=== PATIENT | male | born 1955 | race Caucasian/White ===

== ENCOUNTER 2019-05-27 16:17 | Inpatient (IN) | payer MEDICARE ==
[~2019-05-27] VITALS: Ht 182.9 cm; Wt 76.4 kg
--- OUTSIDE RECORDS SUMMARY | 2019-05-27 16:20 | XMS REPORT | Clinical Summary ---
Author Author [facility] Address Unknown Phone Unavailable Care Team Providers Care Battery Mechanic Name Role Phone PCP Unavailable Allergies Not on File Medications Not on file Active Problems Not on file Social History Date Tobacco Use Types Packs/Day Years Used Never Assessed Sex Assigned at Date Recorded Not on file Industry Job Start Date Occupation Not on file Not on file Not on file Travel End Travel History Travel Start No recent travel history available. Last Filed Vital Signs Not on file Plan of Treatment Health Maintenance Due Date Last Done Comments COLONOSCOPY SCREENING 2007 SHINGLES VACCINES (#1) 2007 INFLUENZA VACCINE 06/09/2019 Results Not on fileafter 05/26/2018 Insurance Type Payer Benefit Subscriber ID Effective Phone Address Plan / Dates Group Medicare MEDICARE MEDICARE xxxxxxxxxx 2012-P [place], PART A AND resent [place] Advance Directives Patient has advance care planning documents on file. For more information, ana m allison contact: Francisco Bello [address] [place] [id number]
[2019-05-27 18:32] LABS: EOSINOPHILS # (AUTO) 0.4 (0.0-0.4); EOSINOPHILS % 5.5 % (0.0-6.0); LYMPHOCYTES # (AUTO) 1.5 (1.0-3.2); LYMPHOCYTES % 19.2 % (18.0-39.1); MEAN CORPUSCULAR HEMOGLOBIN 20.3 pg (28-32); MEAN CORPUSCULAR HGB CONC 27.7 g/dL (31-35); MEAN CORPUSCULAR VOLUME 73.3 fL (81-99); MONOCYTES # (AUTO) 0.9 (0.2-0.8); MONOCYTES % 11.8 % (4.4-11.3); NEUTROPHILS % 62.9 % (38.7-80.0); PLATELET COUNT 464 x10e3/uL (140-360); RED BLOOD COUNT 1.87 x10e6/uL (4.3-5.7); RED CELL DISTRIBUTION WIDTH 19.5 % (11.7-14.4)
[2019-05-27 18:36] LABS: INR 1.45; PARTIAL THROMBOPLASTIN TIME 27.4 seconds (23.8-35.5); PROTHROMBIN TIME 18.2 seconds (11.9-14.5)
[2019-05-27 18:37] LABS: HEMATOCRIT 13.7 % (38.2-49.6); HEMOGLOBIN 3.8 g/dL (14.0-18.0)
[2019-05-27] MEDS ORDERED: SODIUM CHLORIDE 0.9% 250ML 250 ML IV ONE (18:45)
[2019-05-27 18:46] LABS: ALBUMIN 2.4 g/dL (3.5-5.0); ALBUMIN/GLOBULIN RATIO 0.7 (0.8-2.0); ANION GAP 14.6 mmol/L (8-16); CALCIUM 8.7 mg/dL (8.4-10.2); CREATININE, SERUM 2.31 mg/dL (0.72-1.25); POTASSIUM 5.6 mmol/L (3.5-5.1)
[2019-05-27 18:52] LABS: CREATINE KINASE MB 1.2 ng/mL (0-5.0)
--- NOTE | 2019-05-27 19:25 | NUR ---
WITNESSED INFORMED CONSENT FOR TRANSFUSION OF BLOOD
--- NOTE | 2019-05-27 19:48 | Diagnostic Imaging Report ---
EXAMINATION: CHEST SINGLE (PORTABLE) INDICATION: Weakness ^ERMD ORDER ^[id number] ^1920 ^Y COMPARISON: August 01, 2009 FINDINGS: TUBES and LINES: Left chest cardiac device. Sternal wires. LUNGS: Linear opacity over the left chest could be overlying the patient or artifactual. Perihilar peribronchial hazy opacity could be due to bronchitis. PLEURA: Likely small left pleural effusion. HEART AND MEDIASTINUM: Prominent heart size. BONES AND SOFT TISSUES: No acute osseous lesion. Soft tissues are unremarkable. UPPER ABDOMEN: No free air under the diaphragm. IMPRESSION: Linear opacity over the left chest could be overlying the patient or artifactual. Perihilar peribronchial hazy opacity could be due to bronchitis. Likely small left pleural effusion. Follow-up imaging is indicated to document clearing. Signed by: Dr. Johnny Rodriguez M.D. on 05/27/2019 7:45 PM
[2019-05-27 19:51] LABS: FERRITIN 8.83 ng/mL (21.81-274.66)
[2019-05-27] MEDS ORDERED: DIATRIZOATE MEGL/DIATRIZOA SOD 30 ML BTL PO ONE (21:01)
[2019-05-27 21:02] LABS: HYPOCHROMASIA MODERATE; PLATELET ESTIMATE ADEQUATE; PLATELET MORPHOLOGY COMMENT FEW LARGE
[2019-05-27 21:03] LABS: ANISOCYTOSIS SLIG; HOWELL-JOLLY BODIES FEW; POIKILOCYTOSIS SLIGHT; RBC MORPHOLOGY COMMENT ABNORMAL
[2019-05-27] MEDS ORDERED: ONDANSETRON HCL INJ 2MG/ML 2ML 2 MG/ML VIAL IV PRN (21:15)
[2019-05-27] MEDS ORDERED: SODIUM CHLORIDE FLUSH 10 ML SYR INJ PRN (21:15)
--- NOTE | 2019-05-27 21:52 | Diagnostic Imaging Report ---
EXAM: CT of the abdomen and pelvis WITHOUT contrast HISTORY: Weakness, rule out malignancy, oral contrast only COMPARISON: None available. TECHNIQUE: The abdomen and pelvis were scanned utilizing a multidetector helical scanner. Coronal and sagittal reformats are available. PROTOCOL: Routine IV CONTRAST: None, which limits sensitivity and specificity of evaluation of the soft tissues and vascular structures. ORAL CONTRAST: Dilute Gastrografin RADIATION DOSE: Total DLP: 577.66 mGy*cm Estimated effective dose: (DLP x 0.015 x size factor) Dose modulation, iterative reconstruction, and/or weight based adjustment of the mA/kV was utilized to reduce the radiation dose to as low as reasonably achievable. COMPLICATIONS: None FINDINGS: Beam lockett artifact secondary to the overlying upper extremities, limits evaluation. LOWER THORAX: Mild elevation of the left hemidiaphragm. Prominent left pericardial fat pad. Moderate hiatal hernia, contains the proximal stomach. Coarse calcifications at/adjacent to the cardiac apex and adjacent left ventricle. HEPATOBILIARY: No definite focal hepatic lesions. No biliary ductal dilatation. Subtle radiopaque densities at the dependent portion of the gallbladder, likely small calcified stones. SPLEEN: A small amount of presumed splenic tissue in the left upper quadrantt, 3.6 cm in diameter. PANCREAS: No focal masses or ductal dilatation. ADRENALS: No adrenal nodule. KIDNEYS/URETERS: The kidneys are bilaterally atrophic. No hydronephrosis or calcified stone. PELVIC ORGANS/BLADDER: The visualized pelvic organs appear unremarkable. PERITONEUM / RETROPERITONEUM: No free air or fluid. GI TRACT: No bowel dilation. The stomach is decompressed, which limits evaluation. Prominent sigmoid predominant diverticulosis, without evidence of acute diverticulitis. The appendix is not visualized, but there are no inflammatory changes adjacent to the cecum. LYMPH NODES: No pathologically enlarged lymph nodes. VESSELS: Scattered atherosclerotic vascular calcifications, including the coronary arteries. Low-density blood pool. BONES and JOINTS: Diffusely decreased mineralization of the osseous structures limits bone detail. Incompletely healed right posterior seventh, eighth, and ninth rib fractures. Incompletely healed posterior left seventh rib fracture. Severe left hip arthropathy. Moderate anterior wedge compression deformity of T9, approximately 70% loss of the anterior vertebral body height and 40% of the posterior vertebral body height. SOFT TISSUES: Flame-shaped retroareolar densities, compatible with gynecomastia. Diffuse muscle atrophy. Post surgical changes at the right growing and a moderate fat-containing right inguinal hernia. IMPRESSION: 1. No specific evidence of a malignancy on this nonenhanced CT of the abdomen and pelvis. 2. Coronary atherosclerosis. 3. Osseous demineralization, age-indeterminate anterior wedge compression fracture deformity of T9, and multiple incompletely healed rib fractures. 4. Mild cholelithiasis. 5. Moderate hiatal hernia. 6. Colonic diverticulosis. 7. Gynecomastia. Signed by: Dr. Honorio Weaver D.O., M.M.M. on 05/27/2019 9:49 PM
--- OUTSIDE RECORDS SUMMARY | 2019-05-27 22:31 | XMS REPORT | Clinical Summary ---
Author Author [facility] Organization [facility] Address Unknown Phone Unavailable Care Team Providers Care Territory Sales Executive Name Role Phone PCP Unavailable Allergies Not [...] information, ana m allison contact: Francisco Bello [address] [place] [id number]
--- OUTSIDE RECORDS SUMMARY | 2019-05-27 22:31 | XMS REPORT ---
Author Author [facility] Address Unknown Phone Unavailable Care Team Providers Care Bookkeeper Assistant Name Role Phone Ayaan CHEUNG Unavailable Unavailable Problems This patient has no known problems. Allergies, Adverse Reactions, Alerts This patient has no known allergies or adverse reactions. Medications This patient has no known medications. Results Test Description Test Time Test Comments Text Results Atomic Results Result Comments CT ABDOMEN/PELVIS WO 2019-05-27 21:32:00 [place] [address] Patient Name: MARIA DEL ROSARIO ARTEAGA MR #: [id number] : 1955 Age/Sex: 64/M Req #: [id number] Adm Physician: Ordered by: MICHEL KHAN ROOTER OPERATOR Report #: [id number] Location: ER Room/Bed: Procedure: [id number] CT/CT ABDOMEN/PELVIS WO Exam Date: 05/27/19 Exam Time: 2100 REPORT STATUS: Signed EXAM: CT of the abdomen and pelvis WITHOUT contrast HISTORY: Weakness, rule out malignancy, oral contrast only COMPARISON: None available. TECHNIQUE: The abdomen and pelvis were scanned utilizing a multidetector helical scanner. Coronal and sagittal reformats are available. PROTOCOL: Routine IV CONTRAST: None, which limits sensitivity and specificity of evaluation of the soft tissues and vascular structures. ORAL CONTRAST: Dilute Gastrografin RADIATION DOSE: Total DLP: 577.66 mGy*cm Estimated effective dose: (DLP x 0.015 x size factor) Dose modulation, iterative reconstruction, and/or weight based adjustment of the mA/kV was utilized to reduce the radiation dose to as low as reasonably achievable. COMPLICATIONS: None FINDINGS: Beam lockett artifact secondary to the overlying upper extremities, limits evaluation. LOWER THORAX: Mild elevation of the left hemidiaphragm. Prominent left pericardial fat pad. Moderate hiatal hernia, contains the proximal stomach. Coarse calcifications at/adjacent to the cardiac apex and adjacent left ventricle. HEPATOBILIARY: No definite focal hepatic lesions. No biliary ductal dilatation. Subtle radiopaque densities at the dependent portion of the gallbladder, likely small calcified stones. SPLEEN: A small amount of presumed splenic tissue in the left upper quadrantt, 3.6 cm in diameter. PANCREAS: No focal masses or ductal dilatation. ADRENALS: No adrenal nodule. KIDNEYS/URETERS: The kidneys are bilaterally atrophic. No hydronep hrosis or calcified stone. PELVIC ORGANS/BLADDER: The visualized pelvic organs appear unremarkable. PERITONEUM / RETROPERITONEUM: No free air or fluid. GI TRACT: No bowel dilation. The stomach is decompressed, which limits evaluation. Prominent sigmoid predominant diverticulosis, without evidence of acute diverticulitis. The appendix is not visualized, but there are no inflammatory changes adjacent to the cecum. LYMPH NODES: No pathologically enlarged lymph nodes. VESSELS: Scattered atherosclerotic vascular calcifications, including the coronary arteries. Low-density blood pool. BONES and JOINTS: Diffusely decreased mineralization of the osseous structures limits bone detail. Incompletely healed right posterior seventh, eighth, and ninth rib fractures. Incompletely healed posterior left seventh rib fracture. Severe left hip arthropathy. Moderate anterior wedge compression deformity of T9, approximately 70% loss of the anterior vertebral body height and 40% of the posterior vertebral body height. SOFT TISSUES: Flame-shaped retroareolar densities, compatible with gynecomastia. Diffuse muscle atrophy. Post surgical changes at the right growing and a moderate fat-containing right inguinal hernia. IMPRESSION: 1. No specific evidence of a malignancy on this nonenhanced CT of the abdomen and pelvis. 2. Coronary atherosclerosis. 3. Osseous demineralization, age-indeterminate anterior wedge compression fracture deformity of T9, and multiple incompletely healed rib fractures. 4. Mild cholelithiasis. 5. Moderate hiatal hernia. 6. Colonic diverticulosis. 7. Gynecomastia. Signed by: Dr. Daniel Weaver D.O., M.M.M. on 05/27/2019 9:49 PM Dictated By: DANIEL WEAVER DO 48 Transcribed By: OLAMIDE on 05/27/192148 COPY TO: MICHEL KHAN NP CHEST SINGLE (PORTABLE) 2019-05-27 19:43:00 [place] [address] Patient Name: MARIA DEL ROSARIO ARTEAGA MR #: [id number] : 1955 Age/Sex: 64/M Req #: [id number] Adm Physician: Ordered by: MICHEL KHAN ROOTER OPERATOR Report #: [id number] Location: ER Room/Bed: Procedure: [id number] DX/CHEST SINGLE (PORTABLE) Exam Date: 05/27/19 Exam Time: 1919 REPORT STATUS: Signed EXAMINATION: CHEST SINGLE (PORTABLE) INDICA TION: Weakness ERMD ORDER [id number] 1919 Y COMPARISON: August 01, 2009 FINDINGS: TUBES and LINES: Left chest cardiac device. Sternal wires. LUNGS: Linear opacity over the left chest could be overlying the patient or artifactual. Perihilar peribronchial hazy opacity could be due to bronchitis. PLEURA: Likely small left pleural effusion. HEART AND MEDIASTINUM: Prominent heart size. BONES AND SOFT TISSUES: No acute osseous lesion. Soft tissues are unremarkable. UPPER ABDOMEN: No free air under the diaphragm. IMPRESSION: Linear opacity over the left chest could be overlying the patient or artifactual. Perihilar peribronchial hazy opacity could be due to bronchitis. Likely small left pleural effusion. Follow-up imaging is indicated to document clearing. Signed by: Dr. Johnny Rodriguez M.D. on 05/27/2019 7:45 PM Dictated By: JOHNNY RODRIGUEZ MD, MD 44 Transcribed By: OLAMIDE on 05/27/191944 COPY TO: MICHEL KHAN NP
[2019-05-27] MEDS ORDERED: SODIUM CHLORIDE 0.9% 250ML 250 ML ONE (22:49)
--- NOTE | 2019-05-27 23:00 | NUR ---
BEDSIDE VERFICATION COMPLETED FOR BLOOD TRANSFUSION, UNIT 1 OF 4, STARTED FIRST UNIT OF PRBC'S; SEE FLOWSHEET ON CHART.
--- NOTE | 2019-05-27 23:50 | NUR ---
REPORT GIVEN TO ALISHA KRAFT.
[2019-05-28] VITALS (12 sets, daily range): BP systolic 81–108; BP diastolic 49–80
--- NOTE | 2019-05-28 02:00 | NUR ---
received patient alert but showing signs of confusion, vitals stable, on the 2nd unit of blood. for 2 more units
[2019-05-28] MEDS: HYDROCODONE/APAP 5MG-325MG TAB PO PRN ×4 (03:06→21:15)
[2019-05-28 03:25] LABS: BILIRUBIN,URINE NEGATIVE (NEGATIVE); CLARITY,URINE CLEAR (CLEAR); COLOR,URINE YELLOW (YELLOW); KETONES,URINE NEGATIVE (NEGATIVE); LEUKOCYTE ESTERASE ,URINE NEGATIVE (NEGATIVE); NITRITE,URINE NEGATIVE (NEGATIVE); PROTEIN,URINE DIPSTICK NEGATIVE (NEGATIVE); URINE UROBILINOGEN 0.2 mg/dL (0.2 - 1)
[2019-05-28 03:40] LABS: EPITHELIAL CELLS,URINE FEW /LPF; RBC,URINE 0-5 /HPF (0-5); WBC,URINE (MAN) 0-5 /HPF (0-5)
--- NOTE | 2019-05-28 06:37 | NUR ---
patient remains stable and calm, on the last unit of blood, vitals stable
--- NOTE | 2019-05-28 07:32 | NUR ---
Spoke with Dr Christina, verified he is aware of the H&H and agrees with plan of care as patient is receiving 4th PRBC presently and remains free of distress.
[2019-05-28] MEDS: PANTOPRAZOLE 40 MG 10ML VIAL IV SCH (08:40)
[2019-05-28] MEDS ORDERED: ALBUTEROL/IPRATROPIUM 3 ML NEB NEB PRN (10:00)
--- NOTE | 2019-05-28 10:16 | NUR ---
Dr No made aware of consult from Dr Christina.
[2019-05-28] MEDS ORDERED: FUROSEMIDE INJ 10 MG/ML 4 ML VIAL IV ONE (10:30)
--- NOTE | 2019-05-28 10:40 | History and Physical ---
PRIMARY CARE PHYSICIAN: None. CONSULTANTS: 1. Dr. Wesley Castro. 2. Dr. Juancarlos No. CHIEF COMPLAINT: Severe anemia, shortness of breath, very poor personal care with bedbugs found by neighbor. HISTORY OF PRESENT ILLNESS: This is a 64-year-old male with coronary artery disease, cardiomyopathy, ICD to left chest, midsternal scar. The patient lives at home by himself. Apparently, he was found by his neighbor. EMS brought the patient in and apparently on the report, the patient was very unkept at home and the house was very dirty and the patient was surrounded by bedbugs where he fell off his recliner. The patient is a very poor historian. On history, the patient was with poor personal hygiene. On admission to the hospital, the patient found to have hemoglobin and hematocrit of 3.8 and 13.7. His platelets were 464 and his WBC was 7.9. The patient is admitted. He received 4 units of blood transfusion. We will get IV Lasix for the fluid overload. The patient's potassium level was 5.6. His BUN and creatinine on admission were 51 and 2.3. The patient is admitted for further evaluation and treatment. 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 Very poor personal hygiene. HOME MEDICATIONS: Not available. PHYSICAL EXAMINATION: VITAL SIGNS: Temperature is 97, blood pressure 106/63, pulse rate 68, respirations 22. GENERAL: The patient is little confused. HEENT: Normocephalic, atraumatic. Pupils reactive. Mucosa is pale. NECK: Supple. PULMONARY: Diminished breath sounds bilaterally. CARDIOVASCULAR: ICD to left chest. Tachycardia. Midsternal scar. ABDOMEN: Cachexia. EXTREMITIES: 2+ edema with very poor personal hygiene overall. NEUROLOGIC: Awake and alert, moving all extremities. No focal deficit, but confused. LABORATORY DATA: Sodium is 143, potassium 5.6, chloride 107, bicarb 27, BUN 51, creatinine 2.3, glucose is 76. Troponin I negative. Iron 11, total iron binding capacity 465, iron saturation is 2, ferritin is 8.8. WBC of 7.6, hemoglobin 3.8, hematocrit 13.7, platelets 464. Coagulation 1.45 INR, PTT is 27.4. Urinalysis is negative. IMAGING DATA: Abdominal and pelvic CT scan has shown coronary atherosclerosis. Mild cholelithiasis. Moderate hiatal hernia, chronic diverticulosis and gynecomastia. Chest x-ray is with vascular congestion or effusion. IMPRESSION: 1. Severe anemia associated with multiple problems including iron deficiency, possible malignancy, poor nutrition intake. 2. Acute on chronic systolic dysfunction congestive heart failure. 3. Blood transfusion. 4. Very poor personal hygiene and will need placement. 5. Chronic kidney disease, stage unknown. PLAN: IV furosemide post blood transfusion, which is 4 units ordered. Echocardiogram. 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 The patient may need his ICD interrogated. Poor personal hygiene body care. Continue to monitor the patient closely. Workup for anemia. CT scan of the chest. MD HOLDEN Hammond/JOSÉ MIGUEL /[id number]
[2019-05-28 11:05] LABS: BASOPHILS % 0.4 % (0.0-1.0); EOSINOPHILS # (AUTO) 0.6 (0.0-0.4); EOSINOPHILS % 9.2 % (0.0-6.0); HEMATOCRIT 25.5 % (38.2-49.6); HEMOGLOBIN 7.8 g/dL (14.0-18.0); LYMPHOCYTES # (AUTO) 1.3 (1.0-3.2); MEAN CORPUSCULAR HEMOGLOBIN 24.1 pg (28-32); MEAN CORPUSCULAR HGB CONC 30.6 g/dL (31-35); MEAN CORPUSCULAR VOLUME 78.9 fL (81-99); MONOCYTES % 14.8 % (4.4-11.3); NEUTROPHILS # (AUTO) 3.9 (2.1-6.9); NEUTROPHILS % 56.2 % (38.7-80.0); PLATELET COUNT 390 x10e3/uL (140-360); RED BLOOD COUNT 3.23 x10e6/uL (4.3-5.7); RED CELL DISTRIBUTION WIDTH 18.6 % (11.7-14.4)
[2019-05-28 11:26] LABS: ALBUMIN 2.5 g/dL (3.5-5.0); ALBUMIN/GLOBULIN RATIO 0.7 (0.8-2.0); ANION GAP 13.6 mmol/L (8-16); CALCIUM 8.8 mg/dL (8.4-10.2); CREATININE, SERUM 2.22 mg/dL (0.72-1.25); POTASSIUM 5.6 mmol/L (3.5-5.1)
[2019-05-28 11:58] LABS: FOLATE 14.7 ng/mL (7.0-15.4)
[2019-05-28] MEDS: PIPERACILLIN/TAZO 2.25 GM 50 ML IV SCH ×3 (12:24→23:59)
--- NOTE | 2019-05-28 13:31 | Consultation ---
DATE OF CONSULTATION: 05/28/2019 Cardiology Consultation Thank you so much for asking me to see this nice man in consultation. HISTORY OF PRESENT ILLNESS: Mr. Alexis is a complex 64-year-old man, who was brought to the emergency room by neighbors. History of Present Illness obtained from the chart. Evidently, neighbors felt he was doing poorly and insisted he come to the emergency room. No particular complaint is expressed. Reportedly, he fell off his recliner. PAST MEDICAL HISTORY: Complex. He was hospitalized in 2008 at [facility] with demonstration of coronary artery disease, but other history apparently happening at [facility], where he reports that he had coronary bypass graft surgery and defibrillator placement. Current medications and further history not available. PHYSICAL EXAMINATION: GENERAL: The patient is awake and answers in very short phrases, falls back asleep. VITAL SIGNS: Blood pressure 106/63 and pulse 70 and regular. HEAD, EYES, EARS, NOSE, AND THROAT: Unremarkable. THORAX: Healed midline sternotomy and left subclavian pacemaker site intact. HEART: Sounds S1, S2 are equal. No distinct murmurs. LUNGS: Relatively clear. ABDOMEN: Normal bowel sounds. Nontender. EXTREMITIES: Dirty, and apparently has bedbugs as well. LABORATORY STUDIES: On admission, showed BUN 51, creatinine 2.3, and potassium 5.6. Liver functions appeared to be normal. His prothrombin time 18.2 seconds, INR 1.45. Initial hemoglobin 3.8, hematocrit 13.7, and white count 7.9. EKG shows sinus rhythm. Chest x-ray relatively poor quality. CT of the abdomen reported as no specific evidence of malignancy, coronary artery disease is seen, mild cholelithiasis, moderate hiatal hernia, colonic diverticulosis and gynecomastia. Wedge compression of T9 and left hip arthropathy. ASSESSMENT: 1. Profound anemia with hemoglobin of 3.8, now status post transfusion. 2. Coronary artery disease with previous coronary artery bypass graft surgery. He does not describe any chest pain. 3. Defibrillator by his report, he says it was placed at [facility]. 4. Renal insufficiency. 5. Prothrombin time 18.2 seconds, INR 1.4, may represent anticoagulation. PLAN: The patient has been transfused and we will monitor his hemoglobin and hematocrit. We will monitor his cardiovascular status. His prognosis is guarded. We will review echocardiogram when available. May consider interrogating defibrillator if we can find out what brand it is. We will follow him closely with you. Thank you for asking me to see him in consultation. MD RANDAL Durbin/JOSÉ MIGUEL /[id number]
--- NOTE | 2019-05-28 14:42 | Diagnostic Imaging Report ---
EXAM: CT Chest WITHOUT contrast INDICATION: ^SOB COMPARISON: CT abdomen and pelvis 05/27/2018. Chest x-ray 05/27/2019. 08/01/2009. TECHNIQUE: Chest was scanned utilizing a multidetector helical scanner from the lung apex through the level of the adrenal glands without administration of IV contrast. Absence of intravenous contrast decreases sensitivity for detection of lymphadenopathy and vascular pathology. Coronal and sagittal reformations were obtained. Routine protocol was performed. IV CONTRAST: None COMPLICATIONS: None RADIATION DOSE: Total DLP: 507.35 mGy*cm Estimated effective dose: (DLP x 0.014 x size factor) mSv CTDIvol has been reviewed. It is below the limits set by the Radiation Protocol Committee (RPC). Dose modulation, iterative reconstruction, and/or weight based adjustment of the mA/kV was utilized to reduce the radiation dose to as low as reasonably achievable. FINDINGS: LINES/ TUBES: Median sternotomy wires. Left-sided pacemaker with 2 leads LUNGS AND AIRWAYS: Moderate paraseptal and centrilobular and some changes with apical predominance. There is breathing motion with atelectasis. Mild scarring in the anterior right upper lobe. Bilateral lower lobe atelectasis, left greater the right. Possible superimposed aspiration the left lower lobe. Diffuse bronchial wall thickening especially in both lower lobes. Mild dependent groundglass opacities in the left upper lobe. PLEURA: Tiny bilateral pleural effusions. HEART AND MEDIASTINUM: The thyroid gland is normal. No mediastinal, hilar or axillary lymphadenopathy. Prominent bilateral axillary lymph nodes. 1.5 cm of the right and 1.4 cm the left. Normal fatty hilum. The heart is normal in size. There is no pericardial effusion. Stable extensive left pericardium and partial myocardial calcifications. There are moderate atherosclerotic calcifications in the aorta and coronary arteries. Main pulmonary artery measures 3 cm. Ascending aorta measures 3 cm. UPPER ABDOMEN: 4.2 cm left adrenal nodule with density measuring 44 Hounsfield units. 1.1 cm in segment 4A of the liver. Small to moderate sliding hiatal hernia with a large component of peritoneal fat. BONES diffuse osteopenia.: Mild wedge deformity of T8 vertebral body. Moderate wedge-shaped compression deformity of T9 vertebral body with roughly 50% height loss. SOFT TISSUES: Unremarkable. IMPRESSION: 1. Emphysema. 2. Bronchial wall thickening, likely reactive airway. 3. Bilateral lower lobe atelectasis especially the left lower lobe. This may represent aspiration. 4. 4.2 cm indeterminate left adrenal nodule. Signed by: Dr. Werner oRse M.D. on 05/28/2019 2:39 PM
--- NOTE | 2019-05-28 19:59 | NUR ---
patient was sitting on the wheel chair, he complained of rocco to his back, he agreed to be transferred to bed. he tolerated transfer poorly. noted he urinated light pink urine 350 cc. multiple scratches to arms legs and body. at this time he agreed to have bed bath later. bed alarm is on, will continue to monitor.
--- NOTE | 2019-05-28 20:48 | Consultation ---
DATE OF CONSULTATION: Gastroenterology Consultation REASON FOR CONSULTATION: Anemia. HISTORY OF PRESENT ILLNESS: Mr. Alexis is a 64-year-old man with severe iron-deficiency anemia as well as renal failure. He was found by his neighbors unable to care for himself. He fell off his recliner and was bitten many times by bedbugs. He says he has a son who comes around when he needs something. He denies any dysphagia, odynophagia, early satiety, abdominal pain, rectal bleeding, melena, nausea, or vomiting. He does not believe he has had prior endoscopic evaluation. He says he last saw his primary doctor which is Dr. Britton about a week ago. He seems somewhat confused. PAST MEDICAL HISTORY: 1. Cardiomyopathy. 2. Left chest ICD. 3. 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 MEDICATIONS: Reviewed. Please see [facility] medication reconciliation form. ALLERGIES: REVIEWED. PLEASE SEE [facility] MEDICATION RECONCILIATION FORM. SOCIAL HISTORY: Denies any alcohol. FAMILY HISTORY: Denies any significant family history. REVIEW OF SYSTEMS: Unable to obtain due to his mental status, although he complains of left knee pain and needing to wear a brace on it. PHYSICAL EXAMINATION: GENERAL: He is sitting in the chair. Complains of knee pain, very unkempt. HEENT: Pupils are equal, round, reactive to light. He is still pale, although he has transfusion. NECK: Supple. LUNGS: Clear. CARDIOVASCULAR: S1, S2. ABDOMEN: Soft, nontender, nondistended. EXTREMITIES: He has bilateral edema. SKIN: Multiple excoriations and kicked on dirt, possibly also excrement on his feet. HEME/ONC: No gross adenopathy or ecchymosis. NEUROLOGIC: Alert and cooperative, but not oriented. PSYCH: Calm, cooperative. The electronic health records reviewed for laboratory and radiologic studies as well as history. ASSESSMENT: 1. Severe iron deficiency anemia. 2. Coronary artery disease with graft and defibrillator. 3. Renal failure. 4. Poor self care and neglect. 5. Bedbugs. 6. Moderate hiatal hernia. 7. Incompletely healed rib fractures. PLAN: At the current time, Mr. Alexis warrants endoscopic evaluation. Ideally, he would have an EGD and colonoscopy. He will need to be optimized and we will need someone who can provide a suitable consent. At the current time, we should have social work and case management involve to find next of kin. Thank you very much for asking us to see Mr. Alexis. Any questions or concerns, please do not hesitate to contact me. Hilary Shay MD [facility]/JOSÉ MIGUEL /[id number]
--- NOTE | 2019-05-28 21:34 | NUR ---
patient just had a bed bath, he tolerated fair. noted agitations. will continue to monitor.
[2019-05-29] VITALS: BP 106/53
[2019-05-29 00:11] VITALS: BP 96/56
[2019-05-29 04:00] VITALS: BP 119/65
[2019-05-29 05:11] LABS: BASOPHILS % 0.4 % (0.0-1.0); EOSINOPHILS # (AUTO) 0.9 (0.0-0.4); EOSINOPHILS % 10.2 % (0.0-6.0); HEMATOCRIT 29.2 % (38.2-49.6); HEMOGLOBIN 8.5 g/dL (14.0-18.0); LYMPHOCYTES # (AUTO) 0.9 (1.0-3.2); LYMPHOCYTES % 10.7 % (18.0-39.1); MEAN CORPUSCULAR HEMOGLOBIN 23.4 pg (28-32); MEAN CORPUSCULAR HGB CONC 29.1 g/dL (31-35); MEAN CORPUSCULAR VOLUME 80.2 fL (81-99); MONOCYTES # (AUTO) 0.9 (0.2-0.8); MONOCYTES % 10.7 % (4.4-11.3); NEUTROPHILS # (AUTO) 5.8 (2.1-6.9); NEUTROPHILS % 67.8 % (38.7-80.0); PLATELET COUNT 450 x10e3/uL (140-360); RED BLOOD COUNT 3.64 x10e6/uL (4.3-5.7); RED CELL DISTRIBUTION WIDTH 19.2 % (11.7-14.4)
[2019-05-29] MEDS: PIPERACILLIN/TAZO 2.25 GM 50 ML IV SCH ×4 (05:16→23:23)
[2019-05-29] MEDS: HYDROCODONE/APAP 5MG-325MG TAB PO PRN ×2 (05:16→16:57)
[2019-05-29 05:32] LABS: INR 1.33; PROTHROMBIN TIME 17.1 seconds (11.9-14.5)
[2019-05-29 05:38] LABS: ANION GAP 15.9 mmol/L (8-16); CALCIUM 9.5 mg/dL (8.4-10.2); CREATININE, SERUM 2.18 mg/dL (0.72-1.25); POTASSIUM 4.9 mmol/L (3.5-5.1)
--- NOTE | 2019-05-29 07:00 | NUR ---
Pt received resting in bed. Alert and oriented x3 on contact isolation due to bedbugs. Oriented to staff and surroundings. Encouraged to press call barbour if help needed. Pt verbalized understanding of teaching. Call barbour within reach. Will monitor
[2019-05-29 07:40] VITALS: BP 93/58
[2019-05-29] MEDS ORDERED: SODIUM CHLORIDE 0.9% 250ML 250 ML ONE (08:20)
[2019-05-29] MEDS: FUROSEMIDE INJ 10 MG/ML 4 ML VIAL IV SCH ×2 (08:45→11:28)
[2019-05-29] MEDS: PANTOPRAZOLE 40 MG 10ML VIAL IV SCH (08:45)
--- NOTE | 2019-05-29 08:45 | NUR ---
Meds given as ordered. Call barbour within reach. Will monitor
--- NOTE | 2019-05-29 08:50 | NUR ---
Pt is alert and oriented x2 with periods of confusion. Pt oriented to staff and surroundings. Call barbour within reach. Will monitor
--- NOTE | 2019-05-29 16:30 | NUR ---
Pt wiped down, sheets changed. Will monitor
--- NOTE | 2019-05-29 17:14 | NUR ---
Spoke to pt's son BENEDICTO [phone]. Advised of pt's condition, and advised to come visit pt in hospital. Emotional support given. Pt aware of call. Will monitor
--- NOTE | 2019-05-29 18:00 | NUR ---
Pt transferred to room 215. Handoff given to bedside nurse
--- NOTE | 2019-05-29 18:00 | NUR ---
REC'D PT AAOX2, ON 4L OF OXYGEN VIA NC, ON CONTACT ISOLATION FOR LICE/SCABIES. NO S/S OF DISTRESS. ON TELE BOX #13. SIDE RAILS UP X2, CALL DILL WITHIN REACH, AND BED IN LOWEST POSITION.
[2019-05-29 18:29] VITALS: BP 113/53
[2019-05-29 20:00] VITALS: BP 96/52
[2019-05-30] VITALS (7 sets, daily range): BP systolic 101–123; BP diastolic 55–71
[2019-05-30] MEDS: ALBUTEROL/IPRATROPIUM 3 ML NEB NEB SCH ×7 (00:12→23:05)
--- NOTE | 2019-05-30 04:00 | NUR ---
PATIENT ALL NIGHT REFUSED BED ALARM AND KEPT GETTING OUT OF BED AND KICKING BED BRAKE. CHARGE NURSE NOTIFIED. PATIENT WAS EDUCATED ON WHY HE SHOULD NOT GET OUT OF BED, WHY THE BED ALARM NEEDS TO BE ON, AND NOT TO KICK BED BRAKE.
[2019-05-30 05:54] LABS: BASOPHILS % 0.3 % (0.0-1.0); EOSINOPHILS % 10.5 % (0.0-6.0); HEMATOCRIT 27.8 % (38.2-49.6); HEMOGLOBIN 8.2 g/dL (14.0-18.0); LYMPHOCYTES # (AUTO) 1.3 (1.0-3.2); LYMPHOCYTES % 14.1 % (18.0-39.1); MEAN CORPUSCULAR HGB CONC 29.5 g/dL (31-35); MEAN CORPUSCULAR VOLUME 81.5 fL (81-99); MONOCYTES # (AUTO) 1.2 (0.2-0.8); MONOCYTES % 12.6 % (4.4-11.3); NEUTROPHILS # (AUTO) 5.7 (2.1-6.9); NEUTROPHILS % 62.1 % (38.7-80.0); PLATELET COUNT 396 x10e3/uL (140-360); RED BLOOD COUNT 3.41 x10e6/uL (4.3-5.7); RED CELL DISTRIBUTION WIDTH 20.3 % (11.7-14.4)
[2019-05-30] MEDS: PIPERACILLIN/TAZO 2.25 GM 50 ML IV SCH ×4 (06:00→23:29)
[2019-05-30 06:09] LABS: ANION GAP 15.3 mmol/L (8-16); CREATININE, SERUM 2.44 mg/dL (0.72-1.25); POTASSIUM 4.3 mmol/L (3.5-5.1)
--- NOTE | 2019-05-30 07:15 | NUR ---
received pt sitting in bed with eyes open. resp even and unlabored. no c/o pain at this time. call light within reach.
--- NOTE | 2019-05-30 07:36 | NUR ---
GAVE REPORT TO ONCOMING NURSE. CALL LIGHT WITHIN REACH. PATIENT SITTING IN BED.
[2019-05-30] MEDS: PANTOPRAZOLE 40 MG 10ML VIAL IV SCH (08:57)
[2019-05-30] MEDS: FUROSEMIDE INJ 10 MG/ML 4 ML VIAL IV SCH (08:57)
--- NOTE | 2019-05-30 10:50 | NUR ---
PT SON IS BENEDICTO [phone], NURSE ALSO HAS FRIEND CORNELIUS BRADFORD. PT HAS LICE, SCABIES, AND BED BUGS. PLANNED EGD AND COLONOSCOPY THAT SON SIGNED CONSENT FOR TODAY.
--- NOTE | 2019-05-30 11:00 | NUR ---
mary Parisi in facility signed consent for EGD and colonoscopy.
[2019-05-30] MEDS ORDERED: PEG (High)/E-LYTE SOLN 4,000 ML BTL PO ONE (13:00)
--- NOTE | 2019-05-30 22:22 | NUR ---
in pt room and pt yelling at this nurse asking "im trying to get some answers", informed pt that he is in the hospital pt stated "this is not a hospital this is some kind of secret government experiment, where are the other patients i dont see them" redirected pt again that he is in hospital and tomorrow he is scheduled to get an EGD and colonscopy, pt has golytely at bedside and asked if he would drink it so that he would be ready for colonoscopy tomorrow, pt stated "no im not gonna drink that poison" explained to pt what it was and that if he was unable to drink it he would not be able to have colonoscopy tomorrow, pt stated " i guess i wont be getting it tomorrow then", pt asked for snack and snacks given, bed in lowest and locked position, bed alarm on and call light in reach
--- NOTE | 2019-05-30 22:55 | NUR ---
SPOKE TO SON BENEDICTO ARTEAGA AND VERIFIED THAT FRIEND CORNELIUS CRUZ CAN BE GIVEN INFORMATION CONCERNING THE PATIENT. NURSE PARAMJIT CANTU,RN ALSO SPOKE TO SON AND 2 NURSES DID VERIFY THAT IT WAS OK TO SHARE INFORMATION WITH FRIEND CORNELIUS CRUZ. PM NURSE MADE AWARE.
--- NOTE | 2019-05-30 22:59 | NUR ---
SPOKE TO MR CORNELIUS CRUZ AND UPDATED HIM CONCERNING PATIENT PLAN OF CARE.
[2019-05-30] MEDS: HYDROCODONE/APAP 5MG-325MG TAB PO PRN (23:29)
[2019-05-31] VITALS (7 sets, daily range): BP systolic 89–110; BP diastolic 50–63
[2019-05-31] MEDS: ALBUTEROL/IPRATROPIUM 3 ML NEB NEB SCH ×6 (02:35→23:27)
--- NOTE | 2019-05-31 03:36 | NUR ---
pt IV no longer in place, pt stated "i pulled it out", IV site cleaned and bandaged, pt refused to have another IV started, informed pt IV is needed so that he may receive antibiotics, pt stated "i dont need them", call light in reach, bed alarm on
[2019-05-31] MEDS: PIPERACILLIN/TAZO 2.25 GM 50 ML IV SCH ×4 (06:00→23:37)
--- NOTE | 2019-05-31 07:00 | NUR ---
The pt. was received from the off-going nurse without iv and refusal to consume his bowel prep. Dr. Castro was notified by the off-going nurse. The pt. has removed the telemetry and refuses to allow iv restart. The fuel house attendant was notified for asst.
--- NOTE | 2019-05-31 07:11 | NUR ---
informed communications instructor for Dr. Rose that pt refused golytely for EGD and colonoscopy today
[2019-05-31] MEDS: FUROSEMIDE INJ 10 MG/ML 4 ML VIAL IV SCH (09:00)
[2019-05-31] MEDS: PANTOPRAZOLE 40 MG 10ML VIAL IV SCH (09:00)
--- NOTE | 2019-05-31 10:49 | NUR ---
Phys therapy worked with the pt. and he was very unsteady and it is recommended that SNF or rehab intervene. The pt. wanted walker let at the bedside and request denied due to his instability.
--- NOTE | 2019-05-31 15:04 | NUR ---
notified of pt's refusal to cooperate with all planned procedures 9bowel prep, iv start and tele monitoring).
--- NOTE | 2019-05-31 19:30 | NUR ---
No IV and Tele upon assessment. Patient refused bowel prep, tele and to start IV. MD aware. Provided education. Will continue to monitor.
[2019-05-31] MEDS: HYDROCODONE/APAP 5MG-325MG TAB PO PRN (22:55)
[2019-06-01] VITALS (9 sets, daily range): BP systolic 107–123; BP diastolic 58–79
[2019-06-01] MEDS: ALBUTEROL/IPRATROPIUM 3 ML NEB NEB SCH ×6 (02:45→23:00)
[2019-06-01] MEDS: PIPERACILLIN/TAZO 2.25 GM 50 ML IV SCH ×4 (04:01→23:09)
[2019-06-01] MEDS: FUROSEMIDE INJ 10 MG/ML 4 ML VIAL IV SCH (12:30)
[2019-06-01] MEDS: PANTOPRAZOLE 40 MG 10ML VIAL IV SCH (12:30)
[2019-06-01] MEDS: HYDROCODONE/APAP 5MG-325MG TAB PO PRN (18:19)
--- NOTE | 2019-06-01 19:20 | NUR ---
REPORT GIVEN TO NIGHT RNVENESSA. PT HAS NO COMPLAINTS AND SHOWS NO S/S OF DISTRESS. PT STATES NORCO ALLEVIATED SOME OF HIS PAIN/DISCOMFORT
--- NOTE | 2019-06-01 23:00 | NUR ---
SPOKE TO MR CORNELIUS HAWLEY FRIEND OF PATIENT. MR HAWLEY WOULD LIKE AND UPDATE CONCERNING THE PATIENTS PLAN OF CARE. HE WOULD LIKE TO SPEAK WITH THE SENIOR PROGRAM PLANNER AND THE DOCTOR. MR HAWLEY'S NUMBER IS [phone]. PER THE SON BENEDICTO ARTEAGA WHO IS POWER OF VINE FRUIT FARMING SUPERVISOR IT IS OKAY TO SPEAK WITH MR HAWLEY. IT WOULD BE HELPFUL IF THE SON MR BENEDICTO ARTEAGA COULD BE UDATED WELL. PM NURSE AWARE CONCERNING THE ABOVE INFORMATION. PM NURSE TO PASS IN REPORT IN THE AM TO MAKE THE MD AND CASE MGMT AWARE TO CALL TOMORROW ON 06/02/19 WITH UPDATES CONCERNING THE PLAN OF CARE. Addendum: 06/01/19 at 2349 by Ilsa Martinez RN BENEDICTO ARTEAGA (SON/POA) PHONE NUMBER IS [phone]
[2019-06-02] VITALS (8 sets, daily range): BP systolic 83–139; BP diastolic 56–80
[2019-06-02] MEDS: ALBUTEROL/IPRATROPIUM 3 ML NEB NEB SCH ×6 (03:00→23:00)
[2019-06-02] MEDS: PIPERACILLIN/TAZO 2.25 GM 50 ML IV SCH ×4 (06:23→23:48)
[2019-06-02] MEDS: HYDROCODONE/APAP 5MG-325MG TAB PO PRN (06:30)
--- NOTE | 2019-06-02 09:33 | NUR ---
CALLED , SPOKE TO FRAN, ANSWERING SERVICE FOR SEN BELTRAN MD, FRAN STATED THAT THE PHYSICAIN WILL BE PAGED.
--- NOTE | 2019-06-02 12:10 | NUR ---
ASSESSMENT: No spiritual / emotional concerns expressed No family or visitors at bedside. Pt states she has had multiple "heart surgeries." Pt states he received visits from "Macario," former employer and friend. Intervention: Provided hospitality and empathic listening. Facilitated illness review. Provided information on how to reach lumber tallier, if needed. Outcome: Pt expressed appreciation for visit. MARION ASCENCIO Recovery Auditor Spiritual Care Department O: [phone] Pager: [phone] ([phone] number calling from)
[2019-06-02] MEDS: FUROSEMIDE INJ 10 MG/ML 4 ML VIAL IV SCH (12:12)
[2019-06-02] MEDS: PANTOPRAZOLE 40 MG 10ML VIAL IV SCH (12:13)
--- NOTE | 2019-06-02 12:52 | NUR ---
CM SPOKE TO PATIENT AND PATIENT FRIEND CORNELIUS ON THE PHONE REQUESTED BY PATIENT. PATIENT INFORMED OF DETENTION FACILITY PLACEMENT. PATIENT FRIEND CORNELIUS AND PATIENT AGREE TO DETENTION PLACEMENT. CHOICES GIVEN TO PATIENT AND PATIENT SIGNED CHOICE FOR MEDICAL RESORT. CLINICAL SENT TO MEDICAL RESORT. [facility] AUTH. [facility] [id number], [place] [address] Addendum: 06/02/19 at 1302 by Rosa Elena Mahan CM PATIENT REFUSED TO TALK ABOUT HOSPICE AT THIS TIME. MEDICAL RESORT FOR DETENTION WAS DISCUSSED AND AGREED UPON. Addendum: 06/02/19 at 1347 by Rosa Elena Mahan CM MEDICAL RESORT FAX: [phone]
[2019-06-02] MEDS ORDERED: NITROGLYCERIN 0.4 MG SUBL SL ONE (13:15)
[2019-06-02] MEDS ORDERED: NITROGLYCERIN 0.4 MG SUBL SL PRN (13:15)
--- NOTE | 2019-06-02 13:17 | NUR ---
CM SPOKE TO DR. DIALLO REGARDING PATIENT PLAN OF CARE AND DISCHARGE PLAN. PATIENT TO RECEIVE EGD/ COLONOSCOPY TOMORROW 06/03. PENDING PROCEDURE RESULTS, DR. DIALLO TO REVISIT HOSPICE SERVICES WITH PATIENT AT BEDSIDE. AT THIS TIME DR. DIALLO AWARE PATIENT IS NOT READY FOR HOSPICE SERVICE CONVERSATION AT THIS TIME.
[2019-06-02] MEDS ORDERED: MAGNESIUM/ALUMINUM/SIMETHICONE 30 ML UDC PO PRN (13:45)
--- NOTE | 2019-06-02 13:47 | NUR ---
2ND CALL, BCALLED DR. LEONE'S OFFICE REGARDING ORDERS TO PREP PATIENT FOR ENDOSCOPY, COLONOSCOPY, LEFT MESSAGE WITH OCEAN LIFEGUARD.
[2019-06-02] MEDS ORDERED: FAMOTIDINE 20 MG TAB PO ONE (14:15)
--- NOTE | 2019-06-02 15:21 | NUR ---
Nutrition LOS Note RD Recommendation(s) for Physician / Nutrition Prescription: continue with diet as prescribed Plan of Care: Patient has been screened and assessed for nutrition risk. At this time, the patient does not pose any nutrition risk. No further nutrition intervention is warranted at this time. Will re-evaluate if consulted by medical staff. 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 EMS found pts home was much unkept and had bed bugs. Pending EGD and colonoscopy. Visited pt in the room. Poor historian. Limited info was obtained. Pt ate ~50% of lunch today. PCT recorded 50-100% meal intake since admission. Pt was complaining of abdominal cramping during my visit. RN was notified. LBM 06/02. No vomiting episode reported. No chewing or swallowing difficulty noted. Unknown weight history. Will continue to monitor and follow. Malnutrition Evaluation (06/02/2019) Poor historian. Unable to evaluate. Diet Education Needs Assessment: Diet education not indicated. Nutrition Care Level: Low Kelsey Holly, MS, RD, LD
--- NOTE | 2019-06-02 15:36 | NUR ---
CALLED DR. DIALLO REGARDING OBTAINING A DOCTOR CONSULT FOR TOE FUNGUS PER THE REQUEST OF MR. CEE POA, FAMILY MEMBER.
--- NOTE | 2019-06-02 15:55 | NUR ---
ARYAN RECEIVED CALL FROM CORNELIUS, PATIENT POA [phone] CONCERNED ABOUT WHY PODIATRY HAS YET TO BE CONSULTED ON PATIENT'S CASE. ARYAN DIRECTED CORNELIUS TO BEDSIDE NURSE REGARDING PAZ REGARDING BEDSIDE CARE HOWEVER, WAS INFORMED THAT i WILL FOLLOW UP AND HAVE PAZ FENG MD AGAIN. CORNELIUS INFORMED THAT PATIENT DID NOT COME IN FOR FOOT FUNGUS SO ANY PROCEDURES DONE MAY NOT BE COVERED BY INSURANCE. CORNELIUS BECAME IRATE AND STATES HE IS "SICK AND TIRED OF NOT HAVING THINGS DONE AND I SHOULDN'T HAVE TO CALL ALL THESE PEOPLE AND RECEIVE NO ANSWERS WHEN MARIA DEL ROSARIO IS A ." CORNELIUS INFORMED THAT IT IS UP TO THE PHYSICIAN TO ORDER CONSULTS SO WE WILL HAVE TO FIRST ASK FOR THE ORDER AND SINCE PATIENT IS ALERT AND ORIENTED WE ARE ABLE TO LET HIM KNOW IT WAS DONE" CORNELIUS RAISES HIS VOICE AND DEMANDS I CALL HIM BEFORE TALKING TO THE PATIENT. CORNELIUS INFORMED THAT SINCE THE PATIENT IS ALERT AND ORIENTED I WOULD HAVE TO SPEAK WITH PATIENT FIRST THEN THE PATIENT CAN DISSEMINATE THE INFORMATION TO FAMILY AND FRIENDS DUE TO HIPAA. CORNELIUS THEN HANGS UP IN FACE. ARYAN AND ANDREW SPEAK TO BEDSIDE RN PAZ REGARDING REQUEST FOR PODIATRY CONSULT AND SITUATION. PAZ STATES HE WILL PAGE DR. DIALLO AND NOTIFY HIM OF PATIENT REQUEST. TRI, HANDLE TURNER AWARE OF SITUATION. ARYAN REQUESTED THAT BEDSIDE RN PLEASE NOTIFY PATIENT ONCE ITS BEEN DONE REQUESTED BY CORNELIUS AND PATIENT. PAZ VERBALLY AGREED.
[2019-06-02] MEDS ORDERED: ONDANSETRON HCL 4 MG ORAL DISINTEGRATING TAB PO PRN (16:00)
[2019-06-02] MEDS ORDERED: BISACODYL 5 MG TAB EC PO ONE (17:00)
--- NOTE | 2019-06-02 18:22 | NUR ---
CALLED AND SPOKE TO DR. JANETH DIALLO REGARDING MR. CORNELIUS CRUZ'S (POA) REQUEST FOR THE PATIENT TO BE SEEN BY A [employer] FOR FUNGAL INFECTION, DR. DIALLO STATED THAT A [employer] WILL NOT TREAT A FUNGAL INFECTION FOR PATIENT WHILE HE IS IN THE HOSPITAL, THAT IS AN OUT PATIENT TREATMENT NOT AN ACUTE NEED, THIS IS AN ACUTE CARE HOSPITAL NOT A JAIL CARE FACILITY.
--- NOTE | 2019-06-02 18:34 | NUR ---
SPOKE TO CORNELIUS CRUZ REGARDING PODIATRY CARE, EXPLAINED THE PHYSICIANS DECISION FOR NOT CONSULTING PODIATRY FOR TOENAIL FUNGAL INFECTION BECAUSE THAT IS NOT AN ACUTE CARE NEED.
--- NOTE | 2019-06-02 19:10 | NUR ---
CHANGE OF SHIFT REPORT GIVEN TO ESAU Mosquera RN.
--- NOTE | 2019-06-02 19:20 | NUR ---
Bedside report and walking rounds complete. Pt resting in bed and in no apparent distress. All safety measured ensured and pt call barbour near.
[2019-06-02] MEDS: FAMOTIDINE 20 MG TAB PO SCH (21:27)
--- NOTE | 2019-06-02 21:32 | NUR ---
Pt refuses to keep continuous pulse ox on. 02 sats normal 96-97% on RA.
--- NOTE | 2019-06-02 21:35 | NUR ---
Pt encouraged to continue to drink prep. Pt takes a few small drinks at at time. Explained to him that prep will need to be finished in order to have procedure done.
--- NOTE | 2019-06-02 23:16 | NUR ---
Another nurse and tech assisted pt to bedside commode. Pt had BM but still not clear at all. Nurse encouraged pt to continue to drink prep.
[2019-06-03] MEDS: ALBUTEROL/IPRATROPIUM 3 ML NEB NEB SCH ×6 (03:00→23:20)
[2019-06-03] MEDS: PIPERACILLIN/TAZO 2.25 GM 50 ML IV SCH ×3 (05:43→18:00)
--- NOTE | 2019-06-03 05:44 | NUR ---
Pt isn't drinking prep. Pt has been encouraged continuously throughout shift. Pt has had 3 BMs since start of shift, none clear.
--- NOTE | 2019-06-03 06:18 | NUR ---
Call placed to Dr. Shay office for clarification on order for procedure and give information on pt.
--- NOTE | 2019-06-03 07:00 | NUR ---
BEDSIDE SHIFT REPORT RECEIVED FROM ESAU BRITO. PT DENIES NEEDS AT THIS TIME.
--- NOTE | 2019-06-03 07:40 | NUR ---
Bedside report and walking rounds complete with day shift RN
[2019-06-03 07:49] LABS: BASOPHILS % 0.4 % (0.0-1.0); EOSINOPHILS # (AUTO) 0.7 (0.0-0.4); EOSINOPHILS % 6.8 % (0.0-6.0); HEMATOCRIT 27.9 % (38.2-49.6); HEMOGLOBIN 8.3 g/dL (14.0-18.0); LYMPHOCYTES # (AUTO) 1.3 (1.0-3.2); LYMPHOCYTES % 13.4 % (18.0-39.1); MEAN CORPUSCULAR HEMOGLOBIN 23.6 pg (28-32); MEAN CORPUSCULAR HGB CONC 29.7 g/dL (31-35); MEAN CORPUSCULAR VOLUME 79.5 fL (81-99); MONOCYTES % 10.5 % (4.4-11.3); NEUTROPHILS # (AUTO) 6.6 (2.1-6.9); NEUTROPHILS % 68.5 % (38.7-80.0); PLATELET COUNT 349 x10e3/uL (140-360); RED BLOOD COUNT 3.51 x10e6/uL (4.3-5.7)
[2019-06-03 08:14] VITALS: BP 107/65
[2019-06-03 08:54] LABS: ANISOCYTOSIS MODERATE; EOSINOPHILS % (MANUAL) 3 % (0-7); HYPOCHROMASIA MARKED; LYMPHOCYTES % (MANUAL) 13 % (19-48); MONOCYTES % (MANUAL) 12 % (3.4-9.0); NEUTROPHILS % (MANUAL) 72 % (40-74); PLATELET ESTIMATE ADEQUATE; PLATELET MORPHOLOGY COMMENT NORMAL; RBC MORPHOLOGY COMMENT ABNORMAL
[2019-06-03] MEDS: FAMOTIDINE 20 MG TAB PO SCH ×2 (09:00→21:00)
[2019-06-03] MEDS: PANTOPRAZOLE 40 MG 10ML VIAL IV SCH (09:34)
[2019-06-03] MEDS: FUROSEMIDE INJ 10 MG/ML 4 ML VIAL IV SCH (09:34)
[2019-06-03 10:41] VITALS: BP 107/65
--- NOTE | 2019-06-03 12:45 | NUR ---
PT OFF THE FLOOR TO ENDO.
[2019-06-03 13:46] VITALS: BP 106/65
[2019-06-03 16:20] VITALS: BP 127/73
--- NOTE | 2019-06-03 17:30 | NUR ---
PT HAS REMOVED HIS IV SITE. PT REFUSES TO HAVE ANOTHER IV STARTED.
--- NOTE | 2019-06-03 17:35 | NUR ---
PT CONTINUES TO REMOVE TELE. PT STATES THAT HE DOES NOT WANT TO WEAR THE MONITOR.
--- NOTE | 2019-06-03 18:00 | NUR ---
LAST MINUTE NETWORK CALLED AND PT IDENTIFIED ONE OF THEIRS. APPOINTMENT SET UP PER DR. VILLEGAS ORDER TO INTERROGATE THE ACID IN THE AM. TALKED TO JEAN MARIE AT [phone].
[2019-06-03] MEDS ORDERED: ETOMIDATE 2 MG/ML 10 ML INJ IV ONE (19:03)
--- NOTE | 2019-06-03 19:15 | NUR ---
representative government relations from [facility] returned call and stated "if i get a call tonight thats close by i will go by tonight if not i will be there in the morning"
[2019-06-03] MEDS ORDERED: MIDAZOLAM HCL 2 MG/2 ML VIAL ONE (19:53)
[2019-06-03 20:15] VITALS: BP 116/76
[2019-06-03 21:46] VITALS: BP_SYST 116; BP_SYST 166; BP_DIAS 66; BP_DIAS 76
[2019-06-04] VITALS (7 sets, daily range): BP systolic 89–116; BP diastolic 52–59
[2019-06-04] MEDS: ALBUTEROL/IPRATROPIUM 3 ML NEB NEB SCH ×6 (03:00→23:00)
[2019-06-04] MEDS: PIPERACILLIN/TAZO 2.25 GM 50 ML IV SCH ×4 (06:00→17:21)
[2019-06-04] MEDS: FAMOTIDINE 20 MG TAB PO SCH ×2 (09:18→21:00)
[2019-06-04] MEDS: FUROSEMIDE INJ 10 MG/ML 4 ML VIAL IV SCH (10:10)
[2019-06-04] MEDS: PANTOPRAZOLE 40 MG 10ML VIAL IV SCH (10:10)
[2019-06-04] MEDS ORDERED: LASIX20 MG PO (11:05)
[2019-06-04] MEDS ORDERED: WARFARIN SODIU2.5 MG PO (11:05)
[2019-06-04] MEDS ORDERED: LISINOPRIL2.5 MG PO (11:05)
[2019-06-04] MEDS ORDERED: MAGNESIUM OXID400 MG PO (11:05)
[2019-06-04] MEDS ORDERED: ATORVASTATIN CA20 MG PO (11:06)
[2019-06-04] MEDS ORDERED: LEVOTHYROXINE88 MCG PO (11:06)
[2019-06-04] MEDS ORDERED: COREG3.125 MG PO (11:06)
[2019-06-04] MEDS ORDERED: TIZANIDINE HCL4 MG PO (11:06)
[2019-06-04] MEDS ORDERED: POTASSIUM CHLO10 ME1 PO (11:06)
[2019-06-04] MEDS ORDERED: PIPERONYL BUTOXIDE/PYRETHRINS 118 ML SHAMPOO TP SCH (13:00)
[2019-06-04] MEDS: PERMETHRIN 5% CREAM 60 GM TUBE TOP SCH (14:47)
--- NOTE | 2019-06-04 15:58 | NUR ---
BED BUGS PRESENT ON BED SHEETS AND PT. CALLED MD DIALLO FOR ORDERS TO TREAT ME. MD DOWNS ORDER PT TREATED FOR SCABIES/LICE/BEDBUGS AT THIS TIME
--- NOTE | 2019-06-04 19:40 | NUR ---
refusing tx and will f/u on thursday Addendum: 06/04/19 at 1 by Minesh Dela Cruz PTA Amended: Links added.
[2019-06-04] MEDS ORDERED: ATORVASTATIN 20 MG TAB PO SCH (21:00)
--- NOTE | 2019-06-04 22:30 | NUR ---
PATIENT GIVEN SHOWER WITH HELP OF TECH. PATIENT NOTICEABLY NOT PUTTING WEIGHT OF LEFT LEG. VOICED THAT HE HAS CHRONIC PAIN IN HIS LEFT KNEE AND IS AT A [address]. [address] DIALLO FOR AN ORDER FOR PAIN MEDICATION AND PRESCRIBED THE PATIENT TYLENOL. WILL GIVE TO PATIENT AND CONTINUE TO MONITOR.
[2019-06-04] MEDS: ACETAMINOPHEN 325 MG TAB PO PRN (23:20)
[2019-06-05] VITALS (7 sets, daily range): BP systolic 100–121; BP diastolic 50–64
--- NOTE | 2019-06-05 | NUR ---
PATIENT WAS MEDICATED FOR PAIN IN RIGHT LEG AND VOICED PAIN IS A LOT BETTER. PATIENT NOW RESTING IN BED AND RELAXED. CALL LIGHT WITHIN REACH, WILL CONTINUE TO MONITOR.
[2019-06-05] MEDS: PIPERACILLIN/TAZO 2.25 GM 50 ML IV SCH ×4 (00:20→17:43)
[2019-06-05] MEDS: LEVOTHYROXINE SODIUM 88 MCG TAB PO SCH (06:05)
[2019-06-05] MEDS: ACETAMINOPHEN 325 MG TAB PO PRN (06:21)
--- NOTE | 2019-06-05 07:00 | NUR ---
BEDSIDE SHIFT REPORT RECEIVED FROM THE CLIENT SOLUTIONS MANAGER RN. PT DENIES NEEDS AT THIS TIME.
[2019-06-05] MEDS: ALBUTEROL/IPRATROPIUM 3 ML NEB NEB SCH ×5 (07:43→23:00)
[2019-06-05] MEDS: FAMOTIDINE 20 MG TAB PO SCH ×2 (09:38→20:48)
[2019-06-05] MEDS: PANTOPRAZOLE 40 MG 10ML VIAL IV SCH (09:38)
--- NOTE | 2019-06-05 14:05 | NUR ---
Visit made by the Spiritual Care Department Pastoral Visitor, Akash Arteaga. PV provided pastoral presence, hospitality, and supportive listening. Pastoral Visitor informed pt/family of the scope of Microfilm Machine Operator Services and availability. MARION ASCENCIO Robotic Maintenance Technician Spiritual Care Department O: [phone] Pager: [phone] ([phone] number calling from)
--- NOTE | 2019-06-05 19:00 | NUR ---
BEDSIDE SHIFT REPORT GIVEN TO THE TRENCHING MACHINE OPERATOR RN. PT DENIED FURTHER NEEDS.
--- NOTE | 2019-06-05 20:00 | NUR ---
PT IN BED, INITIAL ASSESSMENT COMPLETE, CALL LIGHT IN REACH, PT C/O PAIN AT 3 OF 10 TO LEFT KNEE, NO DISTRESS NOTED, VS STABLE, IV INTACT, TELE ON PT, TOLD TO CALL FOR HELP, PT ON CONTACT FOR LICE/BED BUGS,
[2019-06-05] MEDS: ATORVASTATIN 40 MG TAB PO SCH (20:48)
[2019-06-06] VITALS (7 sets, daily range): BP systolic 106–127; BP diastolic 51–80
--- NOTE | 2019-06-06 | NUR ---
pt in bed, vs stable, no distress noted, no bugs noted, meds given, call light in reach
[2019-06-06] MEDS: ALBUTEROL/IPRATROPIUM 3 ML NEB NEB SCH ×3 (03:00→15:27)
--- NOTE | 2019-06-06 04:00 | NUR ---
pt in bed, vs stable, no distress noted, will continue to monitor condition
[2019-06-06 05:37] LABS: BASOPHILS % 0.3 % (0.0-1.0); EOSINOPHILS % 11.1 % (0.0-6.0); HEMATOCRIT 25.9 % (38.2-49.6); HEMOGLOBIN 7.5 g/dL (14.0-18.0); LYMPHOCYTES # (AUTO) 1.4 (1.0-3.2); LYMPHOCYTES % 15.6 % (18.0-39.1); MEAN CORPUSCULAR HEMOGLOBIN 23.7 pg (28-32); MEAN CORPUSCULAR VOLUME 81.7 fL (81-99); MONOCYTES # (AUTO) 0.8 (0.2-0.8); MONOCYTES % 9.3 % (4.4-11.3); NEUTROPHILS # (AUTO) 5.6 (2.1-6.9); NEUTROPHILS % 63.4 % (38.7-80.0); PLATELET COUNT 317 x10e3/uL (140-360); RED BLOOD COUNT 3.17 x10e6/uL (4.3-5.7); RED CELL DISTRIBUTION WIDTH 22.5 % (11.7-14.4)
[2019-06-06] MEDS: LEVOTHYROXINE SODIUM 88 MCG TAB PO SCH (05:54)
[2019-06-06] MEDS: PIPERACILLIN/TAZO 2.25 GM 50 ML IV SCH ×2 (05:54)
[2019-06-06 06:01] LABS: ANION GAP 14.2 mmol/L (8-16); CALCIUM 8.8 mg/dL (8.4-10.2); CREATININE, SERUM 1.5 mg/dL (0.72-1.25); POTASSIUM 3.2 mmol/L (3.5-5.1)
--- NOTE | 2019-06-06 06:04 | NUR ---
pt awake for meds, iv intact, call light in reach, no distress noted,
[2019-06-06 06:07] LABS: EOSINOPHILS % (MANUAL) 6 % (0-7); LYMPHOCYTES % (MANUAL) 12 % (19-48); MONOCYTES % (MANUAL) 6 % (3.4-9.0); NEUTROPHILS % (MANUAL) 75 % (40-74)
[2019-06-06 06:12] LABS: ACANTHOCYTES FEW; ANISOCYTOSIS SLIGHT; ELLIPTOCYTE, RBC MODERATE; OVALOCYTES FEW; PLATELET ESTIMATE ADEQUATE; PLATELET MORPHOLOGY COMMENT NORMAL; POIKILOCYTOSIS MODERATE; TEAR DROP CELLS FEW
[2019-06-06 06:13] LABS: RBC MORPHOLOGY COMMENT ABNORMAL
--- NOTE | 2019-06-06 08:52 | NUR ---
SPOKE WITH CORNELIUS MARSHALL WHOM IS MAKING DECISIONS FOR PT, , HE STATES HE IS UPSET BECAUSE THIS SHOULD HAVE ALREADY BEEN DONE, HE STATES HE IS A AND WAS TOLD BY THE NURSE HE SHOULD GET BENEFITS, [facility] AND LEFT A MESSAGE WITH TAWANNA CROOKS [phone] TO SEE IF PT QUALIFIES FOR FDC PLACEMENT, WILL WAIT FOR RETURN CALL. HE STATES THE CM THAT WAS OVER HIS CASE SHOULD HAVE HANDLES THIS BETTER. EXPLAINED WOULD DO THE BEST WE CAN WITH THE RESOURCES AVAILABLE, EDUCATED NEED OF DOCUMENTATION TO QUALIFY PT FOR CARE HOME PLACEMENT. PT WILL NEED TO BE MEDICAID PENDING, WAS TOLD THERE WAS A HOSPICE EVAL.
[2019-06-06] MEDS: OMEPRAZOLE 20 MG CAP PO SCH (09:21)
[2019-06-06] MEDS: FUROSEMIDE 40 MG TAB PO SCH (09:22)
[2019-06-06] MEDS: FAMOTIDINE 20 MG TAB PO SCH ×2 (09:22→20:55)
[2019-06-06] MEDS: POTASSIUM CHLORIDE 10MEQ EA PO SCH (09:22)
[2019-06-06] MEDS: DOXYCYCLINE HYCLATE TABLET 100 MG TAB PO SCH ×2 (09:22→17:59)
[2019-06-06] MEDS: IRON SUCROSE 100 MG in SODIUM CHLORIDE 0.9% 100 ML 100 ML IV SCH (10:34)
[2019-06-06] MEDS: PERMETHRIN 5% CREAM 60 GM TUBE TOP SCH (11:00)
--- NOTE | 2019-06-06 11:11 | NUR ---
RECEIVED A CALL FROM ICU NURSE LAI, WHOM STATES CORNELIUS CALLED HER TO DISCUSS THIS CASE, I CALLED CORNELIUS AND INFORMED HIM THAT HE CALLED AN ICU NURSE, HE STATES ASKED FOR NURSE SERVICE MEMBER BECAUSE SOME ONE NEEDED TO KNOW WHAT WAS GOING ON, I INFORMED HIM THAT I HAD ALREADY CALLED 5 FACILITIES, TO SEE IF MEDICAID PENDING BEDS ARE AVAILABLE AND CALLED TAWANNA CROOKS AT THE [facility] AND AM WAITING ON A CALL BACK, I ASKED HIM IF THE PT HAS MEDICAID, HE STATES YES HE HAS THE GOLD CARD, I EDUCATED HIM THAT THOSE ARE 2 DIFFERENT PROGRAMS. HE KEPT YELLING AND BELITTLING ME ABOUT HOW I DO NOT KNOW HOW TO DO MY JOB, I ASKED HIM REPEATEDLY TO STOP, I AGAIN INFORMED HIM THAT I AM DOING [place] TO ASSIST WITH PLACEMENT AND NEED TO KNOW WHAT BENEFITS THE PATIENT HAS, HE THEN STATES IF HE DIDN'T HAVE ANYONE THEN WE WOULD JUST KILL THE PATIENT, I AGAIN ASKED FOR INFORMATION AND LET HIM KNOW I AM WAITING EMR SPECIALIST BACKS, I ALSO LET HIM KNOW THAT MY SERVICE MEMBER IS ALEC NEW AND HE CAN REACH HER TOMORROW.
--- NOTE | 2019-06-06 12:42 | NUR ---
SPOKE WITH MIC[facility] AT [facility], WHOM AFTER BEING PROVIDED INFORMATION ABOUT PT DEMOGRAPHICS, STATES IS NOT SERVICES CONNECTED, THEREFORE DOES NOT QUALIFY FOR VA BENEFITS OF ANY KIND AT THE [facility] OR CONTRACTS. CALLED AND LET CORNELIUS KNOW, ASKED HIM IF HE HAD THOUGHT ABOUT [facility], THEY DO HAVE A MEDICAID PENDING BED AND ALSO A COMMUNITY PROGRAM THAT COMES TO THEIR BUILDING TO ASSIST WITH MEDICAID APPROVALS EVERY THURSDAY, LET CORNELIUS KNOW AND HE AUTHORIZED FOR ME TO SEND CLINICALS TO THEM FOR PLACEMENT. I LET HIM KNOW THAT IVANNA WILL BE CONTACTING HIM FOR CONSENTS AND FURTHER QUESTIONS.
[2019-06-06] MEDS: ATORVASTATIN 40 MG TAB PO SCH (20:55)
[2019-06-06] MEDS: ACETAMINOPHEN 325 MG TAB PO PRN (21:14)
[2019-06-07] VITALS (7 sets, daily range): BP systolic 99–127; BP diastolic 57–80
[2019-06-07] MEDS: ALBUTEROL/IPRATROPIUM 3 ML NEB NEB SCH ×4 (01:30→19:30)
[2019-06-07] MEDS: LEVOTHYROXINE SODIUM 88 MCG TAB PO SCH (05:07)
--- NOTE | 2019-06-07 07:00 | NUR ---
BEDSIDE SHIFT REPORT FROM NIGHT RN. PT DENIES NEEDS AT THIS TIME.
[2019-06-07] MEDS: DOXYCYCLINE HYCLATE TABLET 100 MG TAB PO SCH ×2 (09:02→17:00)
[2019-06-07] MEDS: PERMETHRIN 5% CREAM 60 GM TUBE TOP SCH (09:02)
[2019-06-07] MEDS: IRON SUCROSE 100 MG in SODIUM CHLORIDE 0.9% 100 ML 100 ML IV SCH (09:02)
[2019-06-07] MEDS: OMEPRAZOLE 20 MG CAP PO SCH (09:02)
[2019-06-07] MEDS: FAMOTIDINE 20 MG TAB PO SCH ×2 (09:02→22:12)
[2019-06-07] MEDS: POTASSIUM CHLORIDE 10MEQ EA PO SCH (09:02)
[2019-06-07] MEDS: FUROSEMIDE 40 MG TAB PO SCH (09:02)
--- NOTE | 2019-06-07 09:03 | NUR ---
ARIADNA FROM [facility] IS COMING TO [facility] FOR PLACEMENT.
[2019-06-07 10:07] LABS: BASOPHILS % 0.3 % (0.0-1.0); EOSINOPHILS # (AUTO) 0.7 (0.0-0.4); EOSINOPHILS % 9.1 % (0.0-6.0); HEMATOCRIT 31.7 % (38.2-49.6); HEMOGLOBIN 9.3 g/dL (14.0-18.0); LYMPHOCYTES # (AUTO) 0.8 (1.0-3.2); LYMPHOCYTES % 11.1 % (18.0-39.1); MEAN CORPUSCULAR HEMOGLOBIN 23.7 pg (28-32); MEAN CORPUSCULAR HGB CONC 29.3 g/dL (31-35); MEAN CORPUSCULAR VOLUME 80.9 fL (81-99); MONOCYTES # (AUTO) 0.7 (0.2-0.8); MONOCYTES % 9.2 % (4.4-11.3); NEUTROPHILS # (AUTO) 5.1 (2.1-6.9); NEUTROPHILS % 69.5 % (38.7-80.0); PLATELET COUNT 348 x10e3/uL (140-360); RED BLOOD COUNT 3.92 x10e6/uL (4.3-5.7); RED CELL DISTRIBUTION WIDTH 22.5 % (11.7-14.4)
[2019-06-07 10:12] LABS: ANION GAP 17.7 mmol/L (8-16); CALCIUM 9.5 mg/dL (8.4-10.2); CREATININE, SERUM 1.56 mg/dL (0.72-1.25); POTASSIUM 3.7 mmol/L (3.5-5.1)
--- NOTE | 2019-06-07 12:00 | NUR ---
RCD BED SIDE REPORT PT RESTING ON BED NO SIGNS OF ANY DISTRESS NOTED BED LOW AND LOCKED CALL LIGHT IN REACH
--- NOTE | 2019-06-07 12:44 | NUR ---
SPOKE WITH FACILITY, THEY ARE SPEAKING WITH THE POA AND GETTING SOME INFORMATION FROM HIM TO COMPLETE THE MEDICAID APPLICATION PROCESS, WAITING ON ACCEPTANCE. COMPLETED RTF AND PASRR TO PUT INTO PACKET AND HAVE READY FOR COMPLETION OF TRANSFER.
--- NOTE | 2019-06-07 14:02 | NUR ---
sPOKE WITH ARIADNA FROM [facility] HE STATES THEY DO NOT HAVE A PRIVATE ROOM TO ACCOMMODATE THE ISOLATION FOR THIS PATIENT, HE STATES THEIR SISTER FACILITY [facility] DOES AND HE IS ASKING PERMISSION TO SEE IF THEY CAN TAKE THE PT. CALLED FRIEND CORNELIUS, HE STATES WHOM EVER WILL HELP HIM IN THE PROCESS TO GET HIM MANOMETER TECHNICIAN CARE, HE IS OKAY WITH. WILL FIX RTF AND TAKE TO NURSES STATION TO REFLECT DIFFERENT FACILITY.
--- NOTE | 2019-06-07 14:05 | NUR ---
[facility] Address: [address] [place] [address]
--- NOTE | 2019-06-07 18:43 | NUR ---
PT RESTING ON BED BED SIDE REPORT GIVEN TO ONCOMING NURSE
--- NOTE | 2019-06-07 19:00 | NUR ---
RECEIVED PATIENT IN BEDSIDE REPORT. PATIENT IS RESTING IN BED BUT STATED HE WANTED TO TRY TO GET UP TO "GET CLEANED UP." REMINDED PATIENT TO MOVE SLOWLY. ONCE SITTING UP ON SIDE OF BED, PATIENT STATED HE DID NOT FEEL STRONG ENOUGH TO WALK. PATIENT WANTED TO SIT ON SIDE OF BED FOR A FEW MINUTES, THEN GOT BACK IN BED, WITH SOME ASSISTANCE WITH GETTING LEGS ON BED. ASSISTED PATIENT TO GET COMFORTABLE. PATIENT STATES NO PAIN. NO S&S OF DISTRESS NOTED. REMINDED PATIENT TO CALL IF HE NEEDS ANYTHING. BED ALARM ON. BED LOCKED IN LOWEST POSITION, SIDE RAILS UPX2, CALL LIGHT IN REACH.
--- NOTE | 2019-06-07 22:00 | NUR ---
PATIENT SITTING UP ON SIDE OF BED. PATIENT REPORTS SEEING THE SOAP DISPENSER MOVING AND THAT IT WAS DISTRACTING HIM. ATTEMPTED TO DISTRACT PATIENT WITH SOMETHING ELSE. PATIENT DECIDED TO LAY BACK DOWN. ASSISTED WITH SWINGING LEGS ONTO BED AND GETTING SITUATED WITH PILLOWS AND SHEETS. PERSONAL BELONGINGS IN REACH. REMINDED PATIENT TO CALL FOR ASSISTANCE WHEN NEEDED.
[2019-06-07] MEDS: ATORVASTATIN 40 MG TAB PO SCH (22:12)
--- NOTE | 2019-06-07 23:45 | NUR ---
PATIENT CONFUSED AT THIS TIME. PRESSED CALL LIGHT BUT UNABLE TO VERBALIZE WHAT HE NEEDED. WHILE TRYING TO DETERMINE WHAT HE WANTED, PATIENT REQUESTED STAFF LEAN CLOSER SO HE CAN "WHISPER," STAFF STATED SHE WAS CLOSE ENOUGH TO HEAR HIM. AFTER ATTEMPTING A FEW MORE TIMES, PATIENT SWUNG OUT ARM IF TO SLAP STAFF IN THE FACE. WHEN TOLD THAT IS UNACCEPTABLE BEHAVIOR, PATIENT STARTED LAUGHING. CONTINUED TO BE UNABLE TO STATE WHAT HE NEEDED, BUT SAID HE WAS OKAY FOR NOW.
[2019-06-08] VITALS (7 sets, daily range): BP systolic 99–115; BP diastolic 51–66
[2019-06-08] MEDS: ALBUTEROL/IPRATROPIUM 3 ML NEB NEB SCH ×4 (01:00→20:15)
[2019-06-08] MEDS: ACETAMINOPHEN 325 MG TAB PO PRN (04:31)
[2019-06-08] MEDS: LEVOTHYROXINE SODIUM 88 MCG TAB PO SCH (04:31)
--- NOTE | 2019-06-08 04:35 | NUR ---
PATIENT HAD BM IN BEDSIDE COMMODE AND ASKED FOR ASSISTANCE WITH DIAPER AND GETTING BACK IN BED. PATIENT SOMEWHAT CONFUSED, BUT BETTER THAN EARLIER. PATIENT REPORTS PAIN IN L KNEE AND R SHOULDER, MOVEMENT OF LAYING DOWN IN BED INCREASED PAIN ENOUGH TO CAUSE PATIENT TO CRY. COMFORT GIVEN UNTIL PATIENT SEEMED TO FEEL SOMEWHAT BETTER. PAIN MEDICATION PROVIDED. PATIENT STATES HE IS GOING TO TRY TO SLEEP. BED LOCKED IN LOWEST POSITION, SIDE RAILS UPX2, CALL LIGHT IN REACH.
[2019-06-08 06:14] LABS: BASOPHILS % 0.2 % (0.0-1.0); EOSINOPHILS # (AUTO) 0.2 (0.0-0.4); EOSINOPHILS % 1.4 % (0.0-6.0); HEMATOCRIT 30.2 % (38.2-49.6); HEMOGLOBIN 8.6 g/dL (14.0-18.0); LYMPHOCYTES # (AUTO) 0.6 (1.0-3.2); LYMPHOCYTES % 4.9 % (18.0-39.1); MEAN CORPUSCULAR HEMOGLOBIN 23.1 pg (28-32); MEAN CORPUSCULAR HGB CONC 28.5 g/dL (31-35); MONOCYTES # (AUTO) 0.9 (0.2-0.8); NEUTROPHILS # (AUTO) 10.6 (2.1-6.9); NEUTROPHILS % 85.9 % (38.7-80.0); PLATELET COUNT 369 x10e3/uL (140-360); RED BLOOD COUNT 3.73 x10e6/uL (4.3-5.7); RED CELL DISTRIBUTION WIDTH 22.5 % (11.7-14.4)
[2019-06-08 06:29] LABS: ANION GAP 17.6 mmol/L (8-16); CALCIUM 9.4 mg/dL (8.4-10.2); CREATININE, SERUM 1.53 mg/dL (0.72-1.25); POTASSIUM 3.6 mmol/L (3.5-5.1)
--- NOTE | 2019-06-08 07:00 | NUR ---
BEDSIDE SHIFT CHANGE REPORT RECEIVED FROM TREVOR BRIOT. PT DENIES NEEDS AT THIS TIME.
[2019-06-08] MEDS: DOXYCYCLINE HYCLATE TABLET 100 MG TAB PO SCH ×2 (09:14→17:30)
[2019-06-08] MEDS: FUROSEMIDE 40 MG TAB PO SCH (09:14)
[2019-06-08] MEDS: POTASSIUM CHLORIDE 10MEQ EA PO SCH (09:14)
[2019-06-08] MEDS: IRON SUCROSE 100 MG in SODIUM CHLORIDE 0.9% 100 ML 100 ML IV SCH (09:14)
[2019-06-08] MEDS: OMEPRAZOLE 20 MG CAP PO SCH (09:14)
[2019-06-08] MEDS: FAMOTIDINE 20 MG TAB PO SCH ×2 (09:14→20:52)
[2019-06-08] MEDS: PERMETHRIN 5% CREAM 60 GM TUBE TOP SCH (09:14)
[2019-06-08 10:51] LABS: ANISOCYTOSIS MODERATE; BURR CELLS SLIGHT; ELLIPTOCYTE, RBC SLIGHT; OVALOCYTES FEW; PLATELET MORPHOLOGY COMMENT FEW LARGE; POIKILOCYTOSIS MODERATE; RBC MORPHOLOGY COMMENT ABNORMAL; TARGET CELLS FEW
[2019-06-08 10:52] LABS: PLATELET ESTIMATE SLIGHTLY INCREASED
[2019-06-08 10:53] LABS: SCHISTOCYTES FEW
--- NOTE | 2019-06-08 15:34 | NUR ---
ARYAN SPOKE TO ARIADNA AND CORNELIUS REGARDING SIGNING PAPERWORK AND TRANSFER. CORNELIUS WAS CAUGHT UP IN COURT TODAY AND WILL GO TO [facility] AT 10:30 AM TOMORROW TO SIGN AND PROVIDE PAPERWORK FOR TRANSFER.
--- NOTE | 2019-06-08 18:00 | NUR ---
WITH REPEATED ATTEMPTS, PT GETS AGITATED AND REFUSES TO KEEP TELE ON.
--- NOTE | 2019-06-08 18:58 | NUR ---
RECEIVED REPORT FROM OFFGOING NURSE.RECEIVED PT RESTING IN BED WITH NO S/S OF DISTRESS.RESPIRATIONS EVEN/NON LABORED.PT REFUSES TO KEEP TELEMETRY ON.BED IN LOWEST/LOCKED POSITION.SIDE RAILS UP X 2.CALL LIGHT WITHIN EASY REACH.
[2019-06-08] MEDS: ATORVASTATIN 40 MG TAB PO SCH (20:52)
--- NOTE | 2019-06-08 20:52 | NUR ---
PT REFUSED BEDALARM,TEACHING REGARDING SAFETY DONE.PT STILL REFUSED BED ALARM PT STATED "JUST CUT IT OFF,I DONT NEED THAT".PT IS AAO X 3 AT THIS TIME.HOGSHEAD FILLER NOTIFIED.
[2019-06-09 00:33] VITALS: BP 100/58
[2019-06-09] MEDS: ALBUTEROL/IPRATROPIUM 3 ML NEB NEB SCH ×3 (01:00→14:02)
[2019-06-09] MEDS: LEVOTHYROXINE SODIUM 88 MCG TAB PO SCH (05:25)
[2019-06-09 06:25] VITALS: BP 112/67
--- NOTE | 2019-06-09 07:00 | NUR ---
BEDSIDE SHIFT CHANGE REPORT RECEIVED FROM TRAVON BRITO. PT DENIES NEEDS AT THIS TIME.
--- NOTE | 2019-06-09 07:11 | NUR ---
REPORT GIVEN TO ONCOMING NURSE,WALKING ROUNDS MADE.PT RESTING IN BED WITH NO S/S OF DISTRESS.
[2019-06-09 07:52] VITALS: BP 116/64
[2019-06-09] MEDS: OMEPRAZOLE 20 MG CAP PO SCH (08:39)
[2019-06-09] MEDS: FUROSEMIDE 40 MG TAB PO SCH (08:39)
[2019-06-09] MEDS: FAMOTIDINE 20 MG TAB PO SCH (08:39)
[2019-06-09] MEDS: POTASSIUM CHLORIDE 10MEQ EA PO SCH (08:39)
[2019-06-09] MEDS: PERMETHRIN 5% CREAM 60 GM TUBE TOP SCH (08:40)
[2019-06-09] MEDS: DOXYCYCLINE HYCLATE TABLET 100 MG TAB PO SCH (08:40)
[2019-06-09] MEDS: IRON SUCROSE 100 MG in SODIUM CHLORIDE 0.9% 100 ML 100 ML IV SCH (08:52)
[2019-06-09 09:00] VITALS: BP 116/64
--- NOTE | 2019-06-09 12:12 | NUR ---
PT ACCEPTED TO [facility], ROOM [address] MENON CARE, RTF COMPLETED AND GIVEN TO NURSE TO COMPLETE THE TRANSFER
[2019-06-09 12:37] VITALS: BP 105/67
--- NOTE | 2019-06-09 13:50 | NUR ---
CALLED DR. LEONE'S OFFICE TO NOTIFY OF TRANSFER ORDER TO REHAB. MESSAGE LEFT WITH EBENEZER WHOM STATED SHE WOULD FORWARD TO
--- NOTE | 2019-06-09 14:05 | NUR ---
PT CLEARED BY DR. VILLEGAS FOR TRANSFER TO REHAB FACILITY.
--- NOTE | 2019-06-09 14:37 | NUR ---
REPORT CALLED TO [facility]. REPORT CALLED TO SUZANNE.
--- NOTE | 2019-06-10 16:16 | NUR ---
FRIEND CORNELIUS CALLED AND WAS UPSET BECAUSE HE WAS TOLD THE PT IS OVER RESOURCES AND A SMART GRID ENGINEER WANTS TO CHARGE HIM 3000. I EXPLAINED TO HIM THAT I HAD NO IDEA WHAT HE WAS TALKING ABOUT, IF THE FACILITY IS OR HAS MADE AN ARRANGEMENT THEN HE WOULD HAVE TO ADDRESS THAT WITH THE FACILITY, HE STATES HE WAS TOLD THE PT WAS ACCEPTED OVER THERE FOR MEDICAID PENDING AND THAT IS NOT A GUARANTEE OF GETTING MEDICAID, THERE IS CRITERIA AND HE WOULD HAVE TO MEET THE CRITERIA, I CANNOT DETERMINE IF THE PT WILL OR WILL NOT BE ACCEPTED. HE BEGAN SCREAMING AT ME AND CALLED ME A LIAR, AND THAT I SENT HIM TO BE SCAMMED. I STATED THAT WE WOULD NOT, I TOLD HIM THAT IT SOUNDED IF HE WAS VERY UPSET AND FRUSTRATED AND THAT I DO NOT KNOW WHAT TO DO TO MAKE IT BETTER, I INFORMED HIM IF HE HAS A ISSUE WITH THE FACILITY TO PLEASE CONTACT THE FACILITY.
== END 2019-06-09 15:43 | DRG 291 ==
LOC: ER 16:17 → ERHOLD 21:05 → IMCU 05-28 01:54 → MED/SURG2 05-29 18:10
PROVIDERS: ADMIT Internal Medicine; ATTEND Internal Medicine
PROC: 30233N1 Transfusion of Nonautologous Red Blood Cells into Peripheral Vein, Percutaneous Approach (ICD-10-PCS; principal; 2019-05-27)
PROC: 0DB68ZX Excision of Stomach, Via Natural or Artificial Opening Endoscopic, Diagnostic (ICD-10-PCS; 2019-06-03)
PROC: 0DB78ZX Excision of Stomach, Pylorus, Via Natural or Artificial Opening Endoscopic, Diagnostic (ICD-10-PCS; 2019-06-03)
PROC: 0DJD8ZZ Inspection of Lower Intestinal Tract, Via Natural or Artificial Opening Endoscopic (ICD-10-PCS; 2019-06-03 12:50)
DX: I13.0 Hypertensive heart and chronic kidney disease with heart failure and stage 1 through stage 4 chronic kidney disease, or unspecified chronic kidney disease (principal); I50.23 Acute on chronic systolic (congestive) heart failure; J69.0 Pneumonitis due to inhalation of food and vomit; J18.9 Pneumonia, unspecified organism; E43 Unspecified severe protein-calorie malnutrition; N18.4 Chronic kidney disease, stage 4 (severe); D59.9 Acquired hemolytic anemia, unspecified; R46.0 Very low level of personal hygiene; D50.0 Iron deficiency anemia secondary to blood loss (chronic); E78.5 Hyperlipidemia, unspecified; E03.9 Hypothyroidism, unspecified; T14.8XXA Other injury of unspecified body region, initial encounter; W57.XXXA Bitten or stung by nonvenomous insect and other nonvenomous arthropods, initial encounter; I25.10 Atherosclerotic heart disease of native coronary artery without angina pectoris; I43 Cardiomyopathy in diseases classified elsewhere; K80.20 Calculus of gallbladder without cholecystitis without obstruction; K44.9 Diaphragmatic hernia without obstruction or gangrene; K57.30 Diverticulosis of large intestine without perforation or abscess without bleeding; D63.8 Anemia in other chronic diseases classified elsewhere; M25.562 Pain in left knee; K64.4 Residual hemorrhoidal skin tags; K29.70 Gastritis, unspecified, without bleeding; K22.8 Other specified diseases of esophagus; J45.909 Unspecified asthma, uncomplicated; J43.9 Emphysema, unspecified; D35.02 Benign neoplasm of left adrenal gland; R53.81 Other malaise; I95.9 Hypotension, unspecified; R62.7 Adult failure to thrive; Z95.810 Presence of automatic (implantable) cardiac defibrillator; Z95.1 Presence of aortocoronary bypass graft; Z79.01 Long term (current) use of anticoagulants; Z87.891 Personal history of nicotine dependence
CPT/HCPCS: 36415; 43239; 45378; 71045; 71250; 74176; 80048; 80053; 81001; 82550; 82553; 82607; 82728; 82746; 82948; 83540; 83735; 84443; 84466; 84484; 85025; 85610; 85730; 86850; 86900; 86920; 88305; 88312; 88342; 93005; 93306; 94640; 97139; 99284; J1756; J1940; J2250; J2405; J2543; J7050; P9016; Q0162